=== PATIENT | female | born 1965 | race African-American/Black ===

== ENCOUNTER 2025-02-03 09:31 | Emergency (ER) | payer MEDICAID ==
[~2025-02-03] VITALS: Ht 172.7 cm; Wt 78.0 kg
[2025-02-03 09:39] VITALS: TEMP 37.1; O2SAT 98
[2025-02-03 10:07] VITALS: TEMP 98.8
[2025-02-03] MEDS: ACETAMINOPHEN 325MG TABLET PO ONE (10:07)
[2025-02-03] MEDS: METOCLOPRAMIDE HCL 10MG/2ML VIAL IV ONE (10:07)
[2025-02-03] MEDS: KETOROLAC 30MG/ML VIAL IV ONE (10:07)
[2025-02-03 10:25] LABS: BASOPHILS % 0.3 % (0.0-2.0); EOSINOPHILS % 0.7 % (0.0-5.0); HEMATOCRIT. 41.9 % (36.0-48.0); HEMOGLOBIN. 13.9 g/dL (12.0-16.0); LYMPHOCYTES % 13.6 % (20.0-50.0); MEAN CORPUSCULAR HEMOGLOBIN 29.7 pg (28.0-32.0); MEAN CORPUSCULAR HGB CONC 33.3 g/dL (31.0-37.0); MEAN CORPUSCULAR VOLUME 89.2 fL (81.0-99.0); MONOCYTES % 7.6 % (2.0-8.0); NEUTROPHILS % 77.8 % (40.0-76.0); RED BLOOD CELL COUNT 4.69 mill/uL (4.2-5.4); RED CELL DISTRIBUTION WIDTH 13.4 % (11.6-14.6)
[2025-02-03 10:33] LABS: CARBON DIOXIDE 23 mEq/L (21-32); CHLORIDE 96 mEq/L (98-107); DIFFERENTIAL COMMENT 1; POTASSIUM 4.8 mEq/L (3.5-5.1); SODIUM 131 mEq/L (136-145)
[2025-02-03 10:34] LABS: CALCIUM 9.3 mg/dL (8.7-10.4)
[2025-02-03 10:38] LABS: CREATININE 0.7 mg/dL (0.6-1.0)
[2025-02-03 10:39] LABS: GLUCOSE 146 mg/dL (70-105); UREA NITROGEN BLOOD 6 mg/dL (9-23)
[2025-02-03 10:40] LABS: ALANINE AMINOTRANSFERASE 67 IU/L (10-49); ALBUMIN 4.8 g/dL (3.2-4.8); ASPARTATE AMINOTRANSFERASE 59 IU/L (<34)
[2025-02-03 10:41] LABS: BILIRUBIN TOTAL 1.6 mg/dL (0.1-1.0); PROTEIN TOTAL 8.5 g/dL (6.0-8.3)
[2025-02-03 10:49] LABS: C REACTIVE PROTEIN HIGH SENS 14.61 mg/l (<1.00)
[2025-02-03 11:07] LABS: ERYTHROCYTE SEDIMENTATION RATE 15 mm/hr (0-30)
[2025-02-03] MEDS ORDERED: NAPR-681 MT (11:25)
[2025-02-03] MEDS ORDERED: AMOX1TAB16 MT (11:25)
[2025-02-03] MEDS ORDERED: AMOXICILLIN/POTASSIUM CLAVULANATE 875/125MG TAB PO ONE (11:30)
[2025-02-03 11:49] VITALS: BP 121/78; PULSE 99; RESP 18; O2SAT 98
[2025-02-03] MEDS: AMOXICILLIN/POTASSIUM CLAVULANATE 875/125MG TAB PO NR (11:49)
== END 2025-02-03 11:51 | disposition home or self-care (01) ==
LOC: ER 09:31
DX: H66.92 Otitis media, unspecified, left ear (principal); R51.9 Headache, unspecified; I67.82 Cerebral ischemia
CPT/HCPCS: 99285; 96374; 70450; 96375; 80053; 86141; 85025; 85651; 36415; J1885; J2765